=== PATIENT | female | born 1990 | race Caucasian/White ===

== ENCOUNTER 2017-10-09 16:44 | Emergency (ER) | payer MEDICAID, OTHER ==
[~2017-10-09] VITALS: Ht 165.1 cm; Wt 59.0 kg
[2017-10-09 18:40] LABS: ALANINE AMINOTRANSFERASE 66 U/L (12-78); ALBUMIN 4.8 G/DL (3.4-5.0); ALBUMIN/GLOBULIN RATIO 1.4 (1.1-1.5); ALKALINE PHOSPHATASE 63 IU/L (46-116); ANION GAP 15 (8-16); ASPARTATE AMINO TRANSFERASE 39 U/L (10-37); BASOPHILS % (AUTO) 0 % (0-1); BILIRUBIN,TOTAL 0.6 MG/DL (0.1-1.0); BLOOD UREA NITROGEN 9 MG/DL (7-18); BUN/CREATININE RATIO 8.4 (6.6-38.0); CALCIUM 10.1 MG/DL (8.5-10.1); CHLORIDE 100 MMOL/L (99-107); CREATININE 1.07 MG/DL (0.40-0.90); EOSINOPHILS % (AUTO) 0 % (0-6); GLUCOSE 153 MG/DL (70-104); HEMATOCRIT 43.1 % (35.0-45.0); LYMPHOCYTES # (AUTO) 0.9 X10'3 (1.1-4.8); LYMPHOCYTES % (AUTO) 5.1 % (21-51); MEAN CORPUSCULAR HEMOGLOBIN 32.1 PG (27.0-31.0); MEAN CORPUSCULAR HGB CONC 34.7 % (33.0-36.5); MEAN CORPUSCULAR VOLUME 92.3 FL (78-98); MEAN PLATELET VOLUME 8.2 FL (7.4-10.4); MONOCYTES # (AUTO) 0.7 X10'3 (0-0.9); MONOCYTES % (AUTO) 4.1 % (2-12); NEUTROPHILS # (AUTO) 16.1 X10'3 (1.8-7.7); NEUTROPHILS % (AUTO) 90.8 % (42-75); PLATELET COUNT 307 X10'3 (140-440); POTASSIUM 4.2 MMOL/L (3.5-5.1); RED BLOOD COUNT 4.67 X10'6 (4.20-5.60); RED CELL DISTRIBUTION WIDTH 14.6 % (11.5-14.5); SODIUM 142 MMOL/L (135-145); TOTAL CARBON DIOXIDE 27.1 MMOL/L (24-32); TOTAL PROTEIN 8.3 G/DL (6.4-8.2); WHITE BLOOD COUNT 17.7 X10'3 (4.5-11.0); eGFR 62 ML/MIN
[2017-10-09 19:44] LABS: URINE HCG NEGATIVE (NEG)
[2017-10-09 19:48] LABS: CLARITY,URINE Cloudy (Clear); GLUCOSE, URINE Negative (Neg); KETONES,URINE 15 mg/dl (Neg); LEUKOCYTE ESTERASE ,URINE Negative (Neg); NITRITES, URINE Negative (Neg); OCCULT BLOOD,URINE Trace (Neg); PROTEIN,URINE 100 mg/dl (Neg)
[2017-10-09 19:53] LABS: COLOR,URINE DARK YELLOW (Yellow); UA COLLECTION TYPE CLN CATCH MIDSTREAM
[2017-10-09 19:55] LABS: RBC,URINE 0-2 /HPF (0-2); WBC,URINE 0-4 /HPF (0-4)
[2017-10-09 19:56] LABS: MUCUS STRANDS MANY /LPF (Neg); SQUAMOUS EPITHELIAL CELL,UR MANY /LPF (FEW)
[2017-10-09 19:57] LABS: AMORPHOUS URATES 1+; BACTERIA,URINE FEW /HPF (Neg)
[2017-10-09] MEDS ORDERED: pantoprazole 40 MG vial IV ONE (20:00)
[2017-10-09] MEDS ORDERED: ondansetron/PF 4mg/2ml inj IV ONE (20:00)
[2017-10-09] MEDS ORDERED: normal saline 1000ML IV soln IVB ONE ×2 (20:00)
[2017-10-09 20:08] LABS: LIPASE 637 U/L (73-393)
[2017-10-09] MEDS ORDERED: ONDA4TAB12 PO (21:41)
[2017-10-09 21:52] VITALS: BP 138/78
== END 2017-10-09 21:54 | disposition home or self-care (01) ==
LOC: ER 16:45
DX: K29.20 Alcoholic gastritis without bleeding (principal); K85.90 Acute pancreatitis without necrosis or infection, unspecified; F12.10 Cannabis abuse, uncomplicated
CPT/HCPCS: 36415; 80053; 81001; 81025; 85025; 96374; 96375; 99284; C9113; J2405; J7030; 83690

== ENCOUNTER 2020-01-22 12:04 | Emergency (ER) | payer MEDICAID, OTHER ==
[~2020-01-22] VITALS: Ht 165.1 cm; Wt 47.0 kg
[~2020-01-22 12:04] MED LIST: ONDA4TAB12 PO
[2020-01-22] MEDS ORDERED: LIDOcaine 1% W/epiNEPHrine 1:200,000 10ml vial IJ ONE (12:15)
[2020-01-22] MEDS ORDERED: TETanus/Pertussis (Acell)/Diphther VAC/PF (Tdap-Adult) 0.5ml syringe IMVAC ONE (12:15)
[2020-01-22] MEDS ORDERED: LIDOcaine 1% 30ml preserv. free vial IJ ONE (12:15)
[2020-01-22 13:36] VITALS: BP 126/87
== END 2020-01-22 13:30 | disposition home or self-care (01) ==
LOC: ER 12:04
DX: S51.812A Laceration without foreign body of left forearm, initial encounter (principal); F12.90 Cannabis use, unspecified, uncomplicated; Z72.89 Other problems related to lifestyle; Z79.899 Other long term (current) drug therapy; X78.1XXA Intentional self-harm by knife, initial encounter; Y93.89 Activity, other specified; Y92.89 Other specified places as the place of occurrence of the external cause; Y99.8 Other external cause status
CPT/HCPCS: 12002; 12032; 90471; 90715; 99283; 99284